=== PATIENT | male | born 1995 | race Caucasian/White ===

== ENCOUNTER 2021-03-04 00:35 | Emergency (ER) | payer BC ==
[2021-03-04] MEDS ORDERED: diphenhydrAMINE 50 MG Cap PO ONE (01:13)
--- NOTE | 2021-03-04 01:16 | EDM.PDOC ---
ED HPI GENERAL MEDICAL PROBLEM - General Chief Complaint: Skin Complaint Stated Complaint: POSS RASH Time Seen by Provider: 03/04/21 00:57 Source of Information: Reports: Patient, RN Notes Reviewed - History of Present Illness INITIAL COMMENTS - FREE TEXT/NARRATIVE: 25 yr old male with onset of hives a couple of hrs ago. There have been most intense L post arm. A few hives Lower legs and also L buttock. No facial swelling. No resp. distress. No hx of prior hives or allergies. No new meds or supplements. He did have some tuna from a can last evening which he has had before and other food after that. - Related Data Allergies Allergy/AdvReac Type Severity Reaction Status Date / Time No Known Allergies Allergy Verified 03/04/21 00:44 Past Medical History - Past Surgical History GI Surgical History: Reports: Hernia, Inguinal, Hernia Repair/Other Social & Family History - Tobacco Use Tobacco Use Status *Q: Light Tobacco User Years of Tobacco use: 2 Packs/Tins Daily: 0.1 - Caffeine Use Caffeine Use: Reports: None - Recreational Drug Use Recreational Drug Use: No ED ROS GENERAL - Review of Systems Review Of Systems: See Below Constitutional: Reports: No Symptoms HEENT: Denies: Rhinitis, Throat Pain, Throat Swelling Respiratory: Denies: Shortness of Breath, Wheezing Cardiovascular: Denies: Chest Pain GI/Abdominal: Denies: Abdominal Pain, Nausea, Vomiting Musculoskeletal: Reports: No Symptoms Skin: Reports: Rash Neurological: Reports: No Symptoms ED EXAM, SKIN/RASH Exam: See Below General Appearance: Alert, No Apparent Distress Eye Exam: Bilateral Eye: PERRL Head: No: Facial Swelling Neck: Supple Respiratory/Chest: No Respiratory Distress, Lungs Clear Back Exam: Normal Inspection Neurological: Alert, No Motor/Sensory Deficits Skin: Warm, Dry, Rash (area of hives L post arm, a couple small hives lower legs, trunk is clear) Course - Vital Signs Last Recorded V/S: Last Vital Signs Temp 97.2 F 03/04/21 00:44 Pulse 88 03/04/21 00:44 Resp 20 03/04/21 00:44 BP 127/75 03/04/21 00:44 Pulse Ox 98 03/04/21 00:44 - Orders/Labs/Meds Meds: Medications Discontinued Medications Generic Name Dose Route Start Last Admin Trade Name Freq PRN Reason Stop Dose Admin Diphenhydramine HCl 50 mg 03/04/21 01:13 03/04/21 01:19 Diphenhydramine 50 Mg Cap PO 03/04/21 01:14 50 mg ONETIME ONE Administration - Re-Assessments/Exams Free Text/Narrative Re-Assessment/Exam: 03/04/21 03:04 have given benadryl 50 mg PO Departure - Departure Time of Disposition: 01:13 Disposition: Home, Self-Care 01 Condition: Fair Clinical Impression: Hives - Discharge Information Instructions: Hives, [id number] Referrals: PCP,None [Primary Care Provider] - Forms: ED Department Discharge Additional Instructions: Keep a log/record of everything you had to eat yesterday, especially this last evening. If you ever break out in hives again you can look for a common problem. The hives may come and go for up to 2 to 3 days. If you have any more difficulty with hives today or tomorrow take claritin 10 mg daily. Follow up clinic as needed. Return to ED as needed for any difficulty breathing or otherwise as needed. Sepsis Event Note (ED) - Evaluation Sepsis Screening Result: No Definite Risk - Focused Exam Vital Signs: Vital Signs Temp Pulse Resp BP Pulse Ox 03/04/21 00:44 97.2 F 88 20 127/75 98
== END 2021-03-04 01:30 | disposition home or self-care (01) ==
LOC: JD.ED 00:35
DX: L50.9 Urticaria, unspecified (principal); Z72.0 Tobacco use
CPT/HCPCS: 99282; 99283; A9270-GY